=== PATIENT | male | born 1985 | race Caucasian/White ===

== ENCOUNTER 2020-04-15 16:43 | Emergency (ER) | payer MEDICAID ==
[~2020-04-15] VITALS: Ht 167.6 cm; Wt 100.0 kg
[2020-04-15] MEDS ORDERED: ONDANSETRON HCL 4MG/2ML INJ IV ONE (17:30)
[2020-04-15] MEDS ORDERED: SODIUM CHLORIDE 0.9% 1,000 ML IV ONE (17:30)
[2020-04-15] MEDS ORDERED: KETOROLAC 30MG/ML VIAL IV ONE (17:30)
[2020-04-15 18:31] LABS: BASOPHILS % 0.6 % (0.0-2.0); EOSINOPHILS % 1.4 % (0.0-5.0); HEMOGLOBIN. 16.5 g/dL (14.0-18.0); LYMPHOCYTES % 45.7 % (20.0-50.0); MEAN CORPUSCULAR HEMOGLOBIN 32.2 pg (28.0-32.0); MEAN CORPUSCULAR VOLUME 91.5 fL (80.0-94.0); MONOCYTES % 7.4 % (2.0-8.0); NEUTROPHILS % 44.9 % (40.0-76.0); PLATELET 183 x1000/uL (130-400); RED BLOOD CELL COUNT 5.14 mill/uL (4.7-6.1); RED CELL DISTRIBUTION WIDTH 14.1 % (11.6-14.6)
[2020-04-15 18:34] LABS: CHLORIDE 104 mEq/L (98-107)
[2020-04-15 20:27] VITALS: BP 119/78
== END 2020-04-15 20:29 | disposition home or self-care (01) ==
LOC: ER 16:43
DX: R07.89 Other chest pain (principal); R06.02 Shortness of breath; R03.0 Elevated blood-pressure reading, without diagnosis of hypertension; Z86.19 Personal history of other infectious and parasitic diseases
CPT/HCPCS: 36415; 71045; 80053; 83880; 84484; 85025; 93005; 96374; 96375; 99285; J1885; J2405; J7030